=== PATIENT | female | born 1960 | race Caucasian/White ===

== ENCOUNTER 2017-01-08 13:57 | Emergency (ER) | payer OTHER ==
[2017-01-08 14:46] LABS: BILIRUBIN NEGATIVE (NEGATIVE); BLOOD NEGATIVE Ery/uL (NEGATIVE); CLARITY CLEAR (CLEAR); COLOR YELLOW (YELLOW); GLUCOSE (U) TRACE mg/dL (NORMAL); KETONE (U) NEGATIVE (NEGATIVE); LEUKOCYTES NEGATIVE Leu/uL (NEGATIVE); NITRITE NEGATIVE (NEGATIVE); PROTEIN NEGATIVE (NEGATIVE); SPECIFIC GRAVITY >=1.030 (1.001-1.030); UROBILINOGEN 0.2 mg/dL (0.2-1.0)
[2017-01-08 15:19] LABS: BASOPHIL 0.2 % (0-2); EOSINOPHIL 0.6 % (0-5); HCT 46.6 % (37.0-47.0); HGB 15.3 g/dl (12.5-16.0); LYMPHOCYTE 18.9 % (15-48); MCH 28.3 pg (25.0-31.0); MCHC 32.8 g/dL (32.0-36.0); MCV 86.1 fL (78.0-100.0); MONOCYTE 8.1 % (0-12); MPV 9.4 fL (6.0-9.5); NEUTROPHIL 72.2 % (41-80); PLT 233 K/uL (150-400); RBC 5.41 M/uL (4.20-5.40); RDW 15.3 % (11.5-14.0)
[2017-01-08 15:45] LABS: ALBUMIN 4.9 g/dL (3.5-5.0); BILIRUBIN - TOTAL 0.5 mg/dL (0.1-1.0); CREATININE 0.8 mg/dL (0.5-1.0); POTASSIUM 3.9 mmol/L (3.5-5.1); TOTAL PROTEIN 7.9 g/dL (6.4-8.3)
== END 2017-01-08 19:11 | disposition home or self-care (01) ==
LOC: FER 13:57
PROVIDERS: Emergency Medicine
DX: K57.32 Diverticulitis of large intestine without perforation or abscess without bleeding (principal); Z98.890 Other specified postprocedural states
CPT/HCPCS: 36415; 80053; 81003; 82150; 83690; 85025